=== PATIENT | female | born 1985 | race Caucasian/White ===

== ENCOUNTER 2018-04-23 17:30 | Emergency (ER) | payer OTHER ==
[2018-04-24 09:41] VITALS: BP 106/62; PULSE 61; RESP 18; TEMP 98.2; O2SAT 100
== END 2018-04-23 19:51 | disposition home or self-care (01) ==
LOC: H.EROB2 17:30
DX: O26.853 Spotting complicating pregnancy, third trimester (principal); Z3A.36 36 weeks gestation of pregnancy

== ENCOUNTER 2018-05-12 20:30 | Inpatient (IN) | payer OTHER ==
[2018-05-12 20:48] VITALS: BMI 25.3
--- NOTE | 2018-05-12 22:43 | OBHP ---
Datetime: 04/23/2018 22:44 IP Adm Impression: , intrauterine IP Admit Plan: Observation/Evaluation; Discharge home Admit Comment, IP Provider: 33 year old at 36.0 weeks (comfirmed by LMP) presents for blood-tin ged mucous on toilet paper after urinating one hour prior to presentation. She is a patient of Dr Ritesh diego, who recommended she come to [facility]. Patient describes the discharge as mucous with a pink/blo od tint. She denies kelsea blood, clots, loss of fluid or any abdominal pain. Reports good movem ent. She has no complaints besides constipation (1 bm/2-4 days) and denies headache, dizziness, nause a, vomitting, chest pain, SOB, diarrhea or urinary symptoms. PMH: denies Family Hx: denies Social: denies Surg Hx: denies Allergies: NKDA Meds: denies, PNV daily Labs: unknown ROS negative unless noted in HPI. PE: calm, pleasant, in no acute distress CV: RRR Resp: no respiratory distress Abd: IUP, no tenderness to palpation Pelvic: genetic coordinator present - speculum exam showed no blood, no lesions, normal clear-white cervical discharge. 0/0/-3. Assessment: 33 year old at 36.0 weeks (comfirmed by LMP) presents for blood-tinged mucous on toilet paper after urinating one hour prior to presentation. Plan: -Patient remained vitally stable -EFM >20 mintues: reassureing - FHR 130, moderate variability, accelerations present, no decelerat ions, Category I -Patient cleared for discharge to home as per reassuring EFM strip and no blood on pelvic exam. -Colace 100 mg RX given -Discussed signs and symptoms warranting emergent visit back to ED Case seen and discussed with Dr Neal. ---Kimberly Castaneda, PGY1 Family Medicine Patient seen with the resident I agree with the note Pelvic Type - PN: Adequate Extremities - PN: Normal Abdomen - PN: Normal Back - PN: Not Done Breast - PN: Not Done Lungs - PN: Normal Heart - PN: Normal Thyroid - PN: Not Done Neurologic - PN: Not Done HEENT - PN: Normal General - PN: Normal FHR - Baseline A Provider: 130 EGA AdmitDate IP: 36.0 IP Chief Complaint: Vaginal bleeding NICHD Variability Prov Fetus A: Moderate 6-25bpm NICHD Accel Fetus A IP Provider: 15X15 FHR Category Provider Fetus A: Category I NICHD Decel Fetus A IP Provider: None Dilatation, Provider: 0 Effacement, Provider: 0 Station, Provider: -3 Genitourinary Exam: Not Done DTRs - PN: Not Done
[2018-05-13 00:19] LABS: BASO # 0.1 K/uL (0.0-0.2); BASO % 0.5 % (0.0-2.0); EOS # 0.4 K/uL (0.0-0.7); HEMOGLOBIN 12.2 g/dL (12.0-16.0); LYMPH # 2.8 K/uL (1.0-4.3); LYMPH % 24.4 % (20.0-40.0); MEAN CELL VOLUME 89.3 fl (81.0-99.0); MEAN CORPUSCULAR HEMOGLOBIN 30.4 pg (27.0-31.0); MEAN PLATELET VOLUME 8.6 fl (7.2-11.7); MONO # 0.5 K/uL (0.0-0.8); MONO % 4.7 % (0.0-10.0); NEUT # 7.9 K/uL (1.8-7.0); NEUT % 67.4 % (50.0-75.0); RBC 4.02 Mil/uL (3.80-5.20); RED CELL DISTRIBUTION WIDTH 13.9 % (11.5-14.5); WHITE BLOOD COUNT 11.6 K/uL (4.8-10.8)
[2018-05-13] MEDS ORDERED: Fentanyl/Bupivacaine HCl 250 ML EPI ONE (00:30)
--- NOTE | 2018-05-13 03:28 | OBADHP ---
Datetime: 05/12/2018 21:00 IP Chief Complaint Other: IOL Admit Comment, IP Provider: HPI: Lida is a 33 year old G1 at 38.5 who was sent from clinic today for IOL after her most recent US showed IUGR (the US report is not available). Denies LOF, vaginal bl eeding or contractions. Good movement. LMP 08/14/17 with [facility] 05/21/18 based on LMP with dating US at 13 weeks. ROS: as above, other full ROS is negative Problems Denies PMH Denies PSH Denies Social No alcohol, tobacco or drug use Medications PNV Allergies NKDA OBJECTIVE See exam section labs: RPR/HIV neg, GBS neg, Hep B neg, Rubella immune, GTT 76, GC/Chlamydia neg Assessment/Plan: 33 year old G1 at 38.5 admitted for IOL secondary to IUGR - Plan to place cervidil overnight - GBS neg Alejandra Rachel MD OB Fellow The patient was seen witht the resident I agree with the note Abdomen - PN: Normal Lungs - PN: Normal Heart - PN: Normal HEENT - PN: Normal General - PN: Normal FHR - Baseline A Provider: 125 Gestation - Est Wks by US: 38.5 Vital Signs Provider: Reviewed; Within Normal Limits NICHD Variability Prov Fetus A: Moderate 6-25bpm NICHD Accel Fetus A IP Provider: 15X15 FHR Category Provider Fetus A: Category I NICHD Decel Fetus A IP Provider: None IP Adm Impression: Term, intrauterine IP Admit Plan: Admit to unit; Initiate labor induction protocol Datetime: 04/23/2018 22:44 Pelvic Type - PN: Adequate Extremities - PN: Normal Back - PN: Not Done Breast - PN: Not Done Thyroid - PN: Not Done Neurologic - PN: Not Done IP Chief Complaint: Vaginal bleeding Dilatation, Provider: 0 Effacement, Provider: 0 Station, Provider: -3 Genitourinary Exam: Not Done DTRs - PN: Not Done EGA AdmitDate IP: 36.0
[2018-05-13] MEDS: Alum-Mag Hydrox-Simethicone Susp (30 mL) PO ONE ×2 (22:32→22:33)
[2018-05-14] MEDS: Lactated Ringer's 1,000 ML IV SCH ×4 (03:00→10:00)
[2018-05-14] MEDS ORDERED: Fentanyl/Bupivacaine HCl 250 ML EPI ONE (03:22)
[2018-05-14] MEDS ORDERED: Oxytocin 30 UNIT 30 UNITS/500 ML BAG IV ONE (05:44)
[2018-05-14] MEDS ORDERED: OXYTOCIN/0.9 % NS 20 UNIT/1,000 ML BAG IV SCH (05:45)
[2018-05-14] MEDS ORDERED: Lidocaine 1% Inj (20ml) ONE (09:06)
--- NOTE | 2018-05-14 09:22 | OBPN ---
Datetime: 05/14/2018 09:14 IP Progress Impression: Normal progression of labor IP Informed Consent Obtain: Vaginal Delivery IP Procedures: Sterile Vag Exam IP Progress Plan: Continue present management Membranes, Provider: Ruptured Contraction Comments Provider: q5min FHR - Baseline A Provider: 120 IP Progress Note Comment: IOL for IUGR reports increased pressure. FHR: 120, mderate variability, +accels, occasional variable deccel SVE done: anterior lip, 100%, 0 station Plan: 1. Labor: making progress, cont current management, labor down 2. Fetus: good scalp stimulation response, reposition, category 1 tracing now 3. GBS neg 4. epidural in situ, adequate relief 5. anticipate Ashtyn Chavez MD Vital Signs Provider: Reviewed; Within Normal Limits NICHD Accel Fetus A IP Provider: 15X15 FHR Category Provider Fetus A: Category I NICHD Variability Prov Fetus A: Moderate 6-25bpm Dilatation, Provider: 10 Effacement, Provider: 100 Station, Provider: 0 NICHD Decel Fetus A IP Provider: Variable Datetime: 05/12/2018 21:00 Gestation - Est Wks by US: 38.5
[2018-05-14] MEDS ORDERED: Lactated Ringer's 1,000 ML IV SCH (11:18)
[2018-05-14] MEDS ORDERED: Benzocaine/Menthol SPRAY TOP PRN (13:44)
--- NOTE | 2018-05-14 16:39 | OBDS ---
DELIVERY PERSONNEL Nurse Sales And Events Coordinator Certified: denys Scrub Nurse: denys Adjunct Physics Instructor: Vicki Brian RN Anesthesiologist: Al Naranjo MD Solar Designer: denys Resident: (fellow) MATERNAL INFORMATION Delivery Anesthesia: Epidural Medications in Delivery: Pitocin 30 units in 500 cc at 999 cc/hr. Estimated Blood Loss (ml): 100 Placenta Cultured: No Other Maternal Complications: IUGR by ultrasound RN Comments: tolerated well by pt.Delivery attended by and (fellow).No acute dis tress notes. Provider Comments: 33 year old GBS neg admitted 05/12 for IOL secondary to IUGR. Progressed to normal spontaneous vaginal delivery of live male infact with Apgars 8 _ 9 position OA over intact per ineum with epidural anesthesia. No meconium, loose nuchal cord x1. was placed on maternal abdo men and delayed cord clamping was performed. Acoustic Sensor Operator was in attendance but no excessive resuscit ation was required. Spontaneous delivery of placenta with 3-vessel cord. No lacerations. EBL was 100c c. Mom and are in stable condition and will be recoved in L_D. Alejandra Rachel MD OB Fellow OB Hospitalist on-call - sign out rec'd earlier today about pt. She was in active labor and progr essed to full dilation. I attended and agree with above note. [facility] LABOR SUMMARY EDC: 05/21/2018 00:00 No. Babies in Womb: 1 Attempted: No Labor Anesthesia: Epidural LABOR INFORMATION Reason for Induction: Intrauterine Growth Retardation Onset of Labor: 05/14/2018 03:30 Complete Dilatation: 05/14/2018 12:00 Cervical Ripening Agents: Cervidil Oxytocin: N/A Group B Beta Strep: Negative Antibiotics # of Doses: na Antibiotics Time of Last Dose: na Steroids Given: None Reason Steroids Not Administered: Not Applicable MEMBRANES Membranes Rupture Method: Spontaneous Rupture of Membranes: 05/14/2018 07:30 Length of Rupture (hrs): 5.57 Amniotic Fluid Color: Clear Amniotic Fluid Amount: Small Amniotic Fluid Odor: Normal STAGES OF LABOR Stage 1 hrs: 8 Stage 1 min: 30 Stage 2 hrs: 1 Stage 2 min: 4 Stage 3 hrs: 0 Stage 3 min: 5 Total Time in Labor hrs: 9 Total Time in Labor min: 39 VAGINAL DELIVERY Episiotomy: None Laceration Extension: N/A Laceration Type: None Laceration Repair: Not Applicable Initial Vag Sponge Count: 5 Final Vag Sponge Count: 5 Initial Vag Sharps Count: 0 Final Vag Sharps Count: 0 Sponge Count Correct: Vaginal Sweep Performed Sharps Count Correct: N/A Count Comment: counted with BABY A INFORMATION Infant Delivery Date/Time: 05/14/2018 13:04 Method of Delivery: Vaginal Born in Route : No : N/A Forceps: N/A Vacuum Extraction: N/A Shoulder Dystocia : No SHOULDER DYSTOCIA BABY A Infant Delivery Date/Time: 05/14/2018 13:04 PRESENTATION/POSITION BABY A Presentation: Cephalic Cephalic Presentation: Vertex Breech Presentation: N/A PLACENTA INFORMATION BABY A Placenta Delivery Time : 05/14/2018 13:09 Placenta Method of Delivery: Spontaneous Placenta Status: Delivered SCORES BABY A Heart Rate 1 min: >100 bpm Resp Effort 1 min: Good Cry Reflex Irritability 1 min: Cough or Sneeze or Pulls Away Muscle Tone 1 min: Active Motion Color 1 min: Blue/Pale Resuscitation Effort 1 min: Tactile Stimulation SCORE 1 MIN: 8 Heart Rate 5 min: >100 bpm Resp Effort 5 min: Good Cry Reflex Irritability 5 min: Cough or Sneeze or Pulls Away Muscle Tone 5 min: Active Motion Color 5 min: Body [place], Extremities Blue Resuscitation Effort 5 min: Tactile Stimulation SCORE 5 MIN: 9 INFANT INFORMATION BABY A Gestational Age at Delivery: 39.0 Gestational Status: Term Outcome : Liveborn Infant Condition : Stable Sex: Male IDENTIFICATION/MEDS BABY A ID Band Number: [id number] ID Band Location: Left Leg; Left Arm Vitamin K Given : Not Given Erythromycin Given: Not Given WEIGHT/LENGTH BABY A Birthweight (gms): 2380 Weight (lb): 5 Weight (oz): 4 Infant Length Inches: 19.00 Infant Length cms: 48.3 CORD INFORMATION BABY A No. Cord Vessels: 3 Nuchal Cord : N/A Cord Blood Taken: Yes Suction: Mouth ASSESSMENT BABY A Infant Complications: Other Infant Complications Other: IUGR/SGA Physical Findings at Delivery: Within Normal Limits Physical Findings Other: christin on left [id number] O2 sat-97-98%RA Respirations: Grunting; Sternal Retractions Rails Developer/ALS Called : No Infant Care By: /Yayo Weeks Transferred To: Remains with Mother
[2018-05-15] MEDS ORDERED: Benzocaine/Menthol SPRAY TOP PRN (00:54)
[2018-05-15] MEDS ORDERED: Alum-Mag Hydrox-Simethicone Susp (30 mL) PO ONE (00:54)
--- NOTE | 2018-05-15 09:25 | OBPPN ---
Datetime: 05/15/2018 09:23 PP Pain Prov: Within normal limits PP Nausea Prov: Denies PP Flatus Prov: Yes PP BM Prov: No PP Breasts Prov: Normal PP Heart Prov: Normal PP Lungs Prov: Normal PP Abdomen/Uterus Prov: Normal PP Lochia Prov: Normal PP Vulva/Perineum Prov: Normal PP CVA Tenderness Prov: Normal PP Extremities Prov: Normal PP Progress Prov: Normal PP Impression Prov: Normal progression PP Plan Prov: Continue present management PP Progress Note Prov: She feels fine today; no probelms A: S/P day 1 PLAN: anticipate discharge in AM Vital Signs Provider PP: Reviewed; Within Normal Limits
--- NOTE | 2018-05-15 10:09 | OBDS ---
DELIVERY PERSONNEL Nurse Pharmacy Resource Tech Certified: denys Delivery Doctor: Ashley Martin DO Scrub Nurse: denys Ash Handler: Vicki Brian RN Anesthesiologist: Al Naranjo MD Small Boat Engineer: denys Resident: (fellow) MATERNAL INFORMATION Delivery Anesthesia: Epidural Medications in Delivery: Pitocin 30 units in 500 cc at 999 cc/hr. Estimated Blood Loss (ml): 100 Placenta Cultured: No Other Maternal Complications: IUGR by ultrasound RN Comments: tolerated well by pt.Delivery attended by and (fellow).No acute dis tress notes. Provider Comments: 33 year old GBS neg admitted 05/12 for IOL secondary to IUGR. Progressed to normal spontaneous vaginal delivery of live male infact with Apgars 8 _ 9 position OA over intact per ineum with epidural anesthesia. No meconium, loose nuchal cord x1. Infant was placed on maternal abdo men and delayed cord clamping was performed. Production Manager was in attendance but no excessive resuscit ation was required. Spontaneous delivery of placenta with 3-vessel cord. No lacerations. EBL was 100c c. Mom and are in stable condition and will be recoved in L_D. Alejandra Rachel MD OB Fellow OB Hospitalist on-call - sign out rec'd earlier today about pt. She was in active labor and progr essed to full dilation. I attended and agree with above note. [facility] LABOR SUMMARY EDC: 05/21/2018 00:00 No. Babies in Womb: 1 Attempted: No Labor Anesthesia: Epidural LABOR INFORMATION Reason for Induction: Intrauterine Growth Retardation Onset of Labor: 05/14/2018 03:30 Complete Dilatation: 05/14/2018 12:00 Cervical Ripening Agents: Cervidil Cervical Ripening Agents: Cervidil (Annotations: Cervidil inserted by Dr. Rachel ) Oxytocin: N/A Group B Beta Strep: Negative Antibiotics # of Doses: na Antibiotics Time of Last Dose: na Steroids Given: None Reason Steroids Not Administered: Not Applicable MEMBRANES Membranes Rupture Method: Spontaneous Membranes Rupture Method: Spontaneous Rupture of Membranes: 05/14/2018 07:30 Rupture of Membranes: 05/14/2018 07:30 Length of Rupture (hrs): 5.57 Length of Rupture (hrs): 5.57 Amniotic Fluid Color: Clear Amniotic Fluid Color: Clear Amniotic Fluid Amount: Small Amniotic Fluid Amount: Small Amniotic Fluid Odor: Normal Amniotic Fluid Odor: Normal STAGES OF LABOR Stage 1 hrs: 8 Stage 1 min: 30 Stage 2 hrs: 1 Stage 2 min: 4 Stage 3 hrs: 0 Stage 3 min: 5 Total Time in Labor hrs: 9 Total Time in Labor min: 39 VAGINAL DELIVERY Episiotomy: None Laceration Extension: N/A Laceration Type: None Laceration Repair: Not Applicable Initial Vag Sponge Count: 5 Final Vag Sponge Count: 5 Initial Vag Sharps Count: 0 Final Vag Sharps Count: 0 Sponge Count Correct: Vaginal Sweep Performed Sharps Count Correct: N/A Count Comment: counted with BABY A INFORMATION Infant Delivery Date/Time: 05/14/2018 13:04 Method of Delivery: Vaginal Born in Route : No : N/A Forceps: N/A Vacuum Extraction: N/A Shoulder Dystocia : No SHOULDER DYSTOCIA BABY A Delivery Date/Time: 05/14/2018 13:04 PRESENTATION/POSITION BABY A Presentation: Cephalic Cephalic Presentation: Vertex Breech Presentation: N/A PLACENTA INFORMATION BABY A Placenta Delivery Time : 05/14/2018 13:09 Placenta Method of Delivery: Spontaneous Placenta Status: Delivered SCORES BABY A Heart Rate 1 min: >100 bpm Resp Effort 1 min: Good Cry Reflex Irritability 1 min: Cough or Sneeze or Pulls Away Muscle Tone 1 min: Active Motion Color 1 min: Blue/Pale Resuscitation Effort 1 min: Tactile Stimulation SCORE 1 MIN: 8 Heart Rate 5 min: >100 bpm Resp Effort 5 min: Good Cry Reflex Irritability 5 min: Cough or Sneeze or Pulls Away Muscle Tone 5 min: Active Motion Color 5 min: Body [place], Extremities Blue Resuscitation Effort 5 min: Tactile Stimulation SCORE 5 MIN: 9 INFORMATION BABY A Gestational Age at Delivery: 39.0 Gestational Status: Term Outcome : Liveborn Condition : Stable Sex: Male IDENTIFICATION/MEDS BABY A ID Band Number: [id number] ID Band Location: Left Leg; Left Arm Vitamin K Given : Not Given Erythromycin Given: Not Given WEIGHT/LENGTH BABY A Birthweight (gms): 2380 Weight (lb): 5 Infant Weight (oz): 4 Length Inches: 19.00 Length cms: 48.3 CORD INFORMATION BABY A No. Cord Vessels: 3 Nuchal Cord : N/A Cord Blood Taken: Yes Suction: Mouth ASSESSMENT BABY A Infant Complications: Other Infant Complications Other: IUGR/SGA Physical Findings at Delivery: Within Normal Limits Physical Findings Other: christin on left axilla-[id number] O2 sat-97-98%RA Respirations: Grunting; Sternal Retractions Low Raw Sugar Cutter/ALS Called : No Care By: /MickyRn Transferred To: Remains with Mother
--- NOTE | 2018-05-16 11:37 | OBPPN ---
Datetime: 05/16/2018 11:34 PP Pain Prov: Within normal limits PP Nausea Prov: Denies PP Flatus Prov: Yes PP BM Prov: Yes PP Breasts Prov: Normal PP Heart Prov: Normal PP Lungs Prov: Normal PP Abdomen/Uterus Prov: Normal PP Lochia Prov: Normal PP Vulva/Perineum Prov: Normal PP CVA Tenderness Prov: Normal PP Extremities Prov: Normal PP C/S Incision Prov: Not Applicable PP Progress Prov: Normal PP Comments Phys Exam Prov: Abdomen soft, nontender, nondistended Uterus firm, below umbilicus No deep calf tenderness bilaterally PP Impression Prov: Normal progression PP Plan Prov: Discharge PP Progress Note Prov: day #2 status post normal spontaneous vaginal delivery, patient re covering well Patient discharged to home today, routine postop instructions and precautions Patient will follow up in office in 6 weeks for visit IP PP Procedures: None Vital Signs Provider PP: Reviewed; Within Normal Limits
--- NOTE | 2018-05-16 11:40 | OBDCSUM ---
Datetime: 04/23/2018 18:42 Follow up at, Provider: [facility] Discharge Instructions, Provider: Routine instructions given Discharge Diagnosis, Provider: Term Delivered Discharge Time: 05/16/2018 11:36 Follow up in weeks, Provider: 4-6 weeks Contraception discussed, Prov: Yes Contraception after Delivery: Undecided
[2018-05-16 21:40] VITALS: BP 112/69; PULSE 57; RESP 20; TEMP 98.1; O2SAT 99
== END 2018-05-16 16:20 | disposition home or self-care (01) | DRG 807 ==
LOC: H.EROB2 20:30 → H.L&D 23:30 → H.OB/GYN 05-14 15:25
PROVIDERS: ADMIT Obstetrics & Gynecology Gynecology; ATTEND Obstetrics & Gynecology Gynecology
PROC: 4A1HXCZ Monitoring of Products of Conception, Cardiac Rate, External Approach (ICD-10-PCS; 2018-05-12)
PROC: 10E0XZZ Delivery of Products of Conception, External Approach (ICD-10-PCS; principal; 2018-05-14)
DX: O36.5930 Maternal care for other known or suspected poor fetal growth, third trimester, not applicable or unspecified (principal); Z37.0 Single live birth; Z3A.39 39 weeks gestation of pregnancy; O69.81X0 Labor and delivery complicated by cord around neck, without compression, not applicable or unspecified